=== PATIENT | female | born 1960 ===

== ENCOUNTER 2018-05-04 09:13 | Emergency (ER) | payer MEDICAID ==
[2018-05-04] MEDS ORDERED: diaZEpam 10 mg/2 ml Inj IM ONE (09:37)
--- NOTE | 2018-05-04 09:41 | ED PDOC ---
HPI: Back Time Seen by Provider: 05/04/18 09:32 Chief Complaint (Nursing): Hip Pain History Per: Patient Onset/Duration Of Symptoms: Days (11) Current Symptoms Are (Timing): Still Present Quality Of Discomfort: Aching Severity: Moderate Pain Scale Rating Of: 5 Previous Symptoms: Back Pain Associated Symptoms: None Exacerbating Factor(s): Movement Additional Complaint(s): Right sided low back pain radiating down right leg x 11 days. H/o herniated lumbar disc, has no new injury. No weakness or parasthesias. No urinary sxs. Past Medical History Vital Signs: Last Vital Signs Temp 98.4 F 05/04/18 09:25 Pulse 75 05/04/18 09:25 Resp 21 05/04/18 09:25 BP 158/80 H 05/04/18 09:25 Pulse Ox 99 05/04/18 09:25 - Medical History PMH: Diabetes, HIV Other PMH: Lupus, Neuropathy - Family History Family History: States: Unknown Family Hx - Home Medications Home Medications: Ambulatory Orders Medication Instructions Recorded Gabapentin [Neurontin] 800 mg PO Q8 #10 tablet 05/04/18 Naproxen [Naprosyn] 500 mg PO Q12H #20 tab 05/04/18 - Allergies Allergies/Adverse Reactions: Allergies Allergy/AdvReac Type Severity Reaction Status Date / Time cefuroxime [From Zinacef] Allergy RASH Verified 05/04/18 09:32 iodine Allergy SWELLING Verified 05/04/18 09:33 morphine Allergy RASH Verified 05/04/18 09:32 trimethobenzamide Allergy VOMITING Verified 05/04/18 09:32 [From Tigan] Review of Systems Constitutional: Negative for: Fever Genitourinary Female: Negative for: Dysuria, Frequency, Incontinence Musculoskeletal: Positive for: Back Pain Neurological: Negative for: Weakness, Numbness Physical Exam - Physical Exam Appears: Positive for: Non-toxic, Uncomfortable Skin: Positive for: Normal Color, Warm, DRY Back: Positive for: Normal Inspection, Muscle Spasm. Negative for: Vertebral Tenderness Neurologic/Psych: Positive for: Alert, Oriented. Negative for: Motor/Sensory Deficits - ECG O2 Sat by Pulse Oximetry: 99 Disposition - Clinical Impression Clinical Impression: Neuropathy - Patient ED Disposition Is Patient to be Admitted: No Counseled Patient/Family Regarding: Studies Performed, Diagnosis, Need For Followup, Rx Given - Disposition Referrals: Rajendra Yadav MD [Medical Doctor] - Disposition: Routine/Home Disposition Time: 12:29 Condition: FAIR Prescriptions: Gabapentin [Neurontin] 800 mg PO Q8 #10 tablet Naproxen [Naprosyn] 500 mg PO Q12H #20 tab Instructions: Sciatica, Peripheral Neuropathy Forms: [facility] (Swazi)
--- NOTE | 2018-05-04 12:10 | MRI ---
PROCEDURE: MR LUMBAR SPINE WITHOUT CONTRAST HISTORY: Back pain COMPARISON: None available. TECHNIQUE: Multiecho multiplanar sequences were performed through the lumbar spine without the use of intravenous contrast. FINDINGS: Normal lumbar lordosis. Vertebral body heights are preserved. There is 10.8 x 8.6 millimeter hyperintense T2 and T1 signal noted at the posterior aspect of L5 likely represent benign hemangioma. The bone marrow is otherwise unremarkable. Conus medullaris unremarkable at the level of T12 Paraspinal soft tissues are unremarkable. T12-L1: No disc herniation, spinal canal stenosis or neural foraminal narrowing. L1-2: No disc herniation, spinal canal stenosis or neural foraminal narrowing. L2-3: Mild degenerative disc changes noted. No disc herniation, spinal canal stenosis or neural foraminal narrowing. L3-4: No disc herniation, spinal canal stenosis or neural foraminal narrowing. L4-5: No disc herniation, spinal canal stenosis or neural foraminal narrowing. L5-S1: Mild degenerative disc changes noted. There is a 4.4 millimeter central disc protrusion associated with mild posterior ligament hypertrophy without evidence of significant spinal or neural foramina narrowing. OTHER FINDINGS: None. IMPRESSION: Small disc herniation at L5-S1 measures 4.4 millimeter associated with mild posterior ligament hypertrophy without evidence of significant spinal or neural foraminal narrowing. Mild degenerative disc changes more prominent at L2-L3 and L5-S1.
[2018-05-04 12:50] VITALS: BP 126/78; PULSE 78; RESP 19; TEMP 97; O2SAT 98
== END 2018-05-04 12:51 | disposition home or self-care (01) ==
LOC: H.ER 09:13
DX: G62.9 Polyneuropathy, unspecified (principal); E11.9 Type 2 diabetes mellitus without complications; M51.37 Other intervertebral disc degeneration, lumbosacral region